=== PATIENT | female | born 1965 | race Caucasian/White ===

== ENCOUNTER 2024-07-11 16:30 | Emergency (ER) | payer MEDICARE, OTHER ==
[~2024-07-11] VITALS: Ht 170.2 cm; Wt 118.2 kg
[~2024-07-11 16:30] MED LIST: DABI150C2 PO; HYDR-3709 PO; HYDR-4069 PO; PREG50 PO; SERT-158 PO
[2024-07-11] MEDS ORDERED: ESCI-8 PO (16:36)
[2024-07-11] MEDS ORDERED: AMLO2.5T96 PO (16:36)
[2024-07-11] MEDS ORDERED: TRAZ-252 PO (16:36)
[2024-07-11] MEDS ORDERED: NAPR-1197 PO (16:36)
[2024-07-11] MEDS: IBUPROFEN 600 MG TABLET PO ONE (17:24)
[2024-07-11] MEDS ORDERED: IBUP-1492 PO (19:33)
[2024-07-11 19:38] VITALS: BP 142/90; PULSE 64; RESP 16; TEMP 98.1; O2SAT 95
== END 2024-07-11 20:03 | disposition home or self-care (01) ==
LOC: EMS 16:30
DX: S53.401A Unspecified sprain of right elbow, initial encounter (principal); I10 Essential (primary) hypertension; F17.210 Nicotine dependence, cigarettes, uncomplicated; F10.90 Alcohol use, unspecified, uncomplicated; Z98.890 Other specified postprocedural states; Z88.1 Allergy status to other antibiotic agents; X58.XXXA Exposure to other specified factors, initial encounter; Y93.89 Activity, other specified; Y92.89 Other specified places as the place of occurrence of the external cause; Y99.8 Other external cause status
CPT/HCPCS: 99283